=== PATIENT | female | born 1950 | race Caucasian/White ===

== ENCOUNTER 2019-10-29 15:51 | Emergency (ER) | payer MEDICARE ==
[~2019-10-29] VITALS: Ht 154.9 cm; Wt 79.5 kg
[~2019-10-29 15:51] MED LIST: CLARITIN 10 MG10 MG PO
[2019-10-29 15:57] VITALS: Ht 154.9 cm; Wt 79.5 kg
[2019-10-29] MEDS ORDERED: CYCLOBENZAPRINE10 MG PO (17:55)
[2019-10-29 18:25] VITALS: BP 135/50
== END 2019-10-29 18:25 | disposition home or self-care (01) ==
LOC: D.ER 15:51
DX: S01.01XA Laceration without foreign body of scalp, initial encounter (principal); S00.03XA Contusion of scalp, initial encounter; W19.XXXA Unspecified fall, initial encounter; Y93.9 Activity, unspecified; Y92.9 Unspecified place or not applicable